=== PATIENT | female | born 1990 | race Asian ===

== ENCOUNTER 2022-05-05 18:14 | Outpatient (CLI) | payer OTHER ==
[2022-05-05] MEDS ORDERED: LACTATED RINGERS 500 ML IV ONE (19:41)
[2022-05-05 20:23] VITALS: BP 122/81
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
== END 2022-05-05 21:19 | disposition left against medical advice (07) ==
LOC: TRG 18:14 → APU 18:16 → TRG 21:19
PROVIDERS: ATTEND Obstetrics & Gynecology
DX: Z34.93 Encounter for supervision of normal pregnancy, unspecified, third trimester (principal); Z3A.28 28 weeks gestation of pregnancy
CPT/HCPCS: 76816; 76819

== ENCOUNTER 2022-05-23 16:47 | Outpatient (CLI) | payer OTHER ==
[2022-05-23 18:41] VITALS: BP 117/77
--- NOTE | 2022-05-23 19:20 | Event Note ---
Date: 05/23/22 pt in triage with c/o BLE swelling and headaches, states she took an Advil but didn't help. Instructed pt to not use Advil any more during , can use Extra strength tylenol, states she has not tried tylenol. Encouraged use of compression socks, frequent rest periods at work to elevate fee, and decrease salt intake. Pt BP is stable, denies visual disturbances, or RUQ pain. Does not look like pre eclampsia at this time. Pt to f/u in office with in a week. Call office if symptoms get worst before scheduled visit. FHT Cat I, reports +FM, Denies CTX, LOF, VB.
== END 2022-05-23 19:29 | disposition home or self-care (01) ==
LOC: TRG 16:47 → APU 16:49 → TRG 19:29
PROVIDERS: ATTEND Obstetrics & Gynecology
DX: O26.893 Other specified pregnancy related conditions, third trimester (principal); M79.89 Other specified soft tissue disorders; Z3A.30 30 weeks gestation of pregnancy
CPT/HCPCS: 59025